=== PATIENT | female | born 1955 | race Two or more races ===

== ENCOUNTER 2023-10-30 18:41 | Inpatient (IN) | payer MEDICARE, BC ==
[~2023-10-30] VITALS: Ht 170.2 cm; Wt 84.7 kg
[~2023-10-30 18:41] MED LIST: ASPI81CH59 PO; ATOR-507 PO; EMPA1TAB3 PO; LEVO125T7 PO; LIDO5PAD12 TOP
[2023-10-30 19:38] LABS: Basophils # (auto) 0.1 10 ^3/uL (0-0.2); Basophils % (auto) 1.4 % (0.0-2.0); Eosinophils # (auto) 0.3 10 ^3/uL (0-0.8); Eosinophils % (auto) 5.6 % (0.0-7.0); Lymphocytes # (auto) 1.9 10 ^3/uL (0.4-5.4); Lymphocytes % (auto) 32.9 % (10.0-50.0); Mean Corpuscular Hemoglobin 29.7 pg (28.0-32.0); Mean Corpuscular Hgb Conc. 34.1 g/dL (32.0-36.0); Mean Corpuscular Volume 87.2 fL (80.0-100.0); Monocytes # (auto) 0.3 10 ^3/uL (0-1.3); Monocytes % (auto) 5.4 % (0.0-12.0); Neutrophils # (auto) 3.2 10 ^3/uL (1.6-8.6); Neutrophils % (auto) 54.7 % (37.0-80.0); Nucleated Red Blood Cells % 0.5 %; Platelet Count (auto) 249 10^3/uL (140-450); Red Cell Distribution Width 16.4 % (11.8-14.3); White Blood Cell 5.8 10^3/uL (4.4-10.8)
[2023-10-30 19:56] LABS: Alanine Aminotransferase 17 U/L (7-40); Albumin 4.3 g/dL (3.2-4.8); Alkaline Phosphatase 111 U/L (46-116); Anion Gap 7 (5-15); Aspartate Aminotransferase 11 U/L (13-40); Bilirubin, Total 1.6 mg/dL (0.2-1.0); Blood Urea Nitrogen 24 mg/dL (9-23); Calcium 9.8 mg/dL (8.7-10.4); Carbon Dioxide 27 mmol/L (20-30); Chloride 106 mmol/L (98-107); Glucose 135 mg/dL (74-106); Potassium 3.9 mmol/L (3.5-5.1); Sodium 140 mmol/L (136-145); Total Protein 7.3 g/dL (5.7-8.2)
[2023-10-30 21:03] LABS: INR 1.03 (0.9-1.15); Partial Thromboplastin Time 27.2 SEC (24.5-34.5); Prothrombin Time 10.9 sec (9.3-11.8)
[2023-10-30] MEDS: HYDROcodone-ACET 5/325MG TAB PO ONE (21:04)
[2023-10-30] MEDS: GABAPENTIN 300 MG CAP PO ONE (21:05)
[2023-10-30 22:42] LABS: Urine Bacteria MOD /hpf (None Seen); Urine Blood Negative /uL (Negative); Urine Clarity Clear (Clear); Urine Color Light-Yellow (Yellow); Urine Protein, UAD Negative (Negative); Urine Specific Gravity 1.017 (1.001-1.035); Urine Urobilinogen Normal (Negative); Urine WBC 22 /hpf (0 - 5); Urine pH 5.5 (5.0-9.0)
[2023-10-30] MEDS: ENOXAPARIN SOD 100 MG/1 ML SYRINGE SC ONE (23:59)
[2023-10-31] VITALS (7 sets, daily range): BP systolic 93–114; BP diastolic 54–72; PULSE 62–97; RESP 14–19; TEMP 97.5–97.9; O2SAT 91–98
[2023-10-31] MEDS ORDERED: ACETAMINOPHEN 325 MG TAB PO PRN (00:15)
[2023-10-31] MEDS ORDERED: DOCUSATE SOD 100 MG CAP PO PRN (00:15)
[2023-10-31] MEDS ORDERED: DEXTROSE (50%) 50ML SYRG IV PRN (00:30)
[2023-10-31] MEDS: cefTRIAXone 1GM/50ML D5W 50 ML IV ONE (01:03)
[2023-10-31] MEDS ORDERED: MORPHINE SULFATE INJ 2 MG/ml SYRG IV PRN (03:00)
[2023-10-31] MEDS ORDERED: NITROGLYCERIN 0.4 MG SL TAB SL PRN (03:00)
[2023-10-31] MEDS: ONDANSETRON HCL 4 MG/2 ML VIAL IV PRN (04:02)
[2023-10-31] MEDS: MORPHINE SULFATE INJ 2 MG/ml SYRG IV PRN (04:02)
[2023-10-31] MEDS: diphenhdrAMINE HCL 50 MG/1 ML VL ONE (04:24)
[2023-10-31] MEDS: diphenhdrAMINE HCL 50 MG/1 ML VL IV ONE (04:25)
[2023-10-31] MEDS ORDERED: diphenhdrAMINE HCL 50 MG/1 ML VL IV PRN (04:30)
[2023-10-31] MEDS: LEVOTHYROXINE SODIUM 50 MCG TAB PO SCH (05:52)
[2023-10-31] MEDS: GABAPENTIN 300 MG CAP PO SCH (05:52)
[2023-10-31 06:14] LABS: Basophils # (auto) 0.1 10 ^3/uL (0-0.2); Basophils % (auto) 1.5 % (0.0-2.0); Eosinophils # (auto) 0.4 10 ^3/uL (0-0.8); Eosinophils % (auto) 5.6 % (0.0-7.0); Hematocrit 41.3 % (36.0-46.0); Hemoglobin 13.9 g/dL (12.2-16.2); Lymphocytes # (auto) 2.5 10 ^3/uL (0.4-5.4); Lymphocytes % (auto) 39.5 % (10.0-50.0); Mean Corpuscular Hemoglobin 30.1 pg (28.0-32.0); Mean Corpuscular Hgb Conc. 33.8 g/dL (32.0-36.0); Mean Corpuscular Volume 89.2 fL (80.0-100.0); Monocytes # (auto) 0.5 10 ^3/uL (0-1.3); Neutrophils # (auto) 2.8 10 ^3/uL (1.6-8.6); Neutrophils % (auto) 45.4 % (37.0-80.0); Nucleated Red Blood Cells % 0.2 %; Platelet Count (auto) 212 10^3/uL (140-450); Red Blood Cells 4.63 10^6/uL (4.0-5.20); Red Cell Distribution Width 16.9 % (11.8-14.3); White Blood Cell 6.3 10^3/uL (4.4-10.8)
[2023-10-31 06:31] LABS: Alanine Aminotransferase 12 U/L (7-40); Alkaline Phosphatase 99 U/L (46-116); Anion Gap 7 (5-15); Aspartate Aminotransferase 18 U/L (13-40); BUN/Creatinine Ratio 26.3 (10.0-20.0); Blood Urea Nitrogen 20 mg/dL (9-23); Calcium 9.2 mg/dL (8.7-10.4); Carbon Dioxide 25 mmol/L (20-30); Chloride 107 mmol/L (98-107); Glucose 98 mg/dL (74-106); Sodium 139 mmol/L (136-145)
[2023-10-31 06:32] LABS: Bilirubin, Total 1.3 mg/dL (0.2-1.0)
[2023-10-31] MEDS: ACCU-CHEK COMFORT CURVE STRIP VI SCH (06:36)
[2023-10-31] MEDS: InsuLIN REG 1unit/0.01ml Soln (100units/ml) SC SCH (06:37)
[2023-10-31] MEDS: HYDROcodone-ACET 5/325MG TAB PO PRN (06:41)
[2023-10-31] MEDS: ENOXAPARIN SOD 80 MG/0.8ML SYRINGE SC SCH (10:08)
[2023-10-31] MEDS: FAMOTIDINE (10MG/ML) 2ML VL IV SCH (10:08)
[2023-10-31] MEDS: IOHEXOL 350 MG/ML 100ML IJ ONE (15:42)
[2023-10-31] MEDS ORDERED: MET50T PO (16:34)
[2023-10-31] MEDS ORDERED: ZINC220T6 PO (16:34)
[2023-10-31] MEDS ORDERED: ASCO500T16 PO (16:34)
[2023-10-31] MEDS ORDERED: ASPI325T6 PO (16:34)
[2023-10-31] MEDS ORDERED: PREG50CA80 PO (16:34)
[2023-10-31] MEDS ORDERED: ACET-1881 PO (16:34)
[2023-10-31] MEDS: ATORVASTATIN 20 MG TAB PO SCH (21:00)
[2023-11-01] VITALS (8 sets, daily range): BP systolic 101–116; BP diastolic 54–64; PULSE 63–74; RESP 17–19; TEMP 97.6–98.1; O2SAT 90–97
[2023-11-01] MEDS: cefTRIAXone 1GM/50ML D5W 50 ML IV SCH (00:27)
[2023-11-01] MEDS: KETOROLAC TROMETH 30 MG/ML 1ML VIAL IV ONE ×2 (04:01→22:35)
[2023-11-01 05:29] LABS: Basophils # (auto) 0.1 10 ^3/uL (0-0.2); Basophils % (auto) 1.5 % (0.0-2.0); Eosinophils # (auto) 0.3 10 ^3/uL (0-0.8); Eosinophils % (auto) 5.6 % (0.0-7.0); Hematocrit 38.8 % (36.0-46.0); Lymphocytes % (auto) 37.5 % (10.0-50.0); Mean Corpuscular Hemoglobin 29.5 pg (28.0-32.0); Mean Corpuscular Hgb Conc. 33.6 g/dL (32.0-36.0); Mean Corpuscular Volume 87.7 fL (80.0-100.0); Monocytes # (auto) 0.3 10 ^3/uL (0-1.3); Monocytes % (auto) 6.5 % (0.0-12.0); Neutrophils # (auto) 2.6 10 ^3/uL (1.6-8.6); Neutrophils % (auto) 48.9 % (37.0-80.0); Platelet Count (auto) 213 10^3/uL (140-450); Red Blood Cells 4.42 10^6/uL (4.0-5.20); Red Cell Distribution Width 16.6 % (11.8-14.3); White Blood Cell 5.3 10^3/uL (4.4-10.8)
[2023-11-01 06:03] LABS: Alanine Aminotransferase 13 U/L (7-40); Albumin 3.9 g/dL (3.2-4.8); Alkaline Phosphatase 94 U/L (46-116); Anion Gap 7 (5-15); Aspartate Aminotransferase 12 U/L (13-40); BUN/Creatinine Ratio 30.7 (10.0-20.0); Carbon Dioxide 27 mmol/L (20-30); Chloride 108 mmol/L (98-107); Glucose 100 mg/dL (74-106); Potassium 4.5 mmol/L (3.5-5.1); Sodium 142 mmol/L (136-145)
[2023-11-01 06:04] LABS: Bilirubin, Total 1.5 mg/dL (0.2-1.0); Total Protein 6.7 g/dL (5.7-8.2)
[2023-11-01 06:08] LABS: Blood Urea Nitrogen 31 mg/dL (9-23)
[2023-11-01 10:19] LABS: Free T3 2.48 pg/mL (2.3-4.2)
[2023-11-01 10:20] LABS: Free T4 (Free Thyroxine) 0.64 ng/dL (0.89-1.76)
[2023-11-01] MEDS: HYDROcodone-ACET 10/325MG TAB PO PRN (11:04)
[2023-11-02] VITALS (12 sets, daily range): BP systolic 99–118; BP diastolic 42–66; PULSE 60–81; RESP 12–19; TEMP 97–98.2; O2SAT 90–99
[2023-11-02 06:13] LABS: Basophils # (auto) 0 10 ^3/uL (0-0.2); Basophils % (auto) 0.7 % (0.0-2.0); Eosinophils # (auto) 0.3 10 ^3/uL (0-0.8); Eosinophils % (auto) 6.2 % (0.0-7.0); Lymphocytes # (auto) 2.1 10 ^3/uL (0.4-5.4); Lymphocytes % (auto) 39.9 % (10.0-50.0); Mean Corpuscular Hemoglobin 29.1 pg (28.0-32.0); Mean Corpuscular Hgb Conc. 33.4 g/dL (32.0-36.0); Mean Corpuscular Volume 87.2 fL (80.0-100.0); Monocytes # (auto) 0.3 10 ^3/uL (0-1.3); Monocytes % (auto) 5.1 % (0.0-12.0); Neutrophils # (auto) 2.5 10 ^3/uL (1.6-8.6); Neutrophils % (auto) 48.1 % (37.0-80.0); Nucleated Red Blood Cells % 0.1 %; Platelet Count (auto) 204 10^3/uL (140-450); Red Blood Cells 4.47 10^6/uL (4.0-5.20); Red Cell Distribution Width 16.9 % (11.8-14.3); White Blood Cell 5.2 10^3/uL (4.4-10.8)
[2023-11-02 06:38] LABS: Alanine Aminotransferase 21 U/L (7-40); Albumin 3.7 g/dL (3.2-4.8); Alkaline Phosphatase 98 U/L (46-116); Anion Gap 7 (5-15); Aspartate Aminotransferase 19 U/L (13-40); Blood Urea Nitrogen 40 mg/dL (9-23); Calcium 9.1 mg/dL (8.7-10.4); Carbon Dioxide 27 mmol/L (20-30); Chloride 107 mmol/L (98-107); Glucose 94 mg/dL (74-106); Magnesium 2.4 mg/dL (1.6-2.6); Potassium 4.2 mmol/L (3.5-5.1); Sodium 141 mmol/L (136-145)
[2023-11-02 06:39] LABS: Bilirubin, Total 1.6 mg/dL (0.2-1.0); Total Protein 6.5 g/dL (5.7-8.2)
[2023-11-02] MEDS: ASPirin 81 mg TAB PO SCH (09:49)
[2023-11-02] MEDS: HEPARIN IN NS 1000Units/500mL 1,500 ML ONE (10:47)
[2023-11-02] MEDS: IODIXANOL 320MG/ML 100ML BTL IV ONE (10:47)
[2023-11-02] MEDS: fentaNYL CITRATE 100 MCG/2 ML VL ONE ×2 (11:01→11:44)
[2023-11-02] MEDS: HEPARIN SODIUM (PORCINE) 5000 UNITS/ML 1ML VIAL ONE (11:01)
[2023-11-02] MEDS: LIDOCAINE 2%HCL (LOCAL ANESTH.) INJ 20ML MDV ONE (11:02)
[2023-11-02] MEDS: MIDAZOLAM HCL 2MG/2ML 2ml VIAL (1mg/ml) ONE ×2 (11:02→11:45)
[2023-11-02] MEDS ORDERED: MORPHINE SULFATE INJ 2 MG/ml SYRG IV PRN (17:30)
[2023-11-02] MEDS: TICAGRELOR 90 MG TAB PO SCH (20:57)
[2023-11-02] MEDS: APIXABAN 5 MG TAB PO SCH (20:57)
[2023-11-03 05:00] VITALS: BP 109/66; PULSE 65; RESP 18; TEMP 97.2; O2SAT 94
[2023-11-03 08:00] VITALS: PULSE 60
[2023-11-03 09:00] VITALS: BP 105/56; PULSE 65; RESP 18; TEMP 98.2; O2SAT 95
[2023-11-03] MEDS: CEPHALEXIN 250 MG CAP PO SCH (12:58)
[2023-11-03 13:00] VITALS: BP_DIAS 122; PULSE 72; RESP 18; TEMP 97.7; O2SAT 100
[2023-11-03] MEDS ORDERED: LORazepam 2MG/ML-1ML VIAL IV PRN (14:30)
[2023-11-03] MEDS: SOD CHL 0.45% 1,000 ML IV SCH (14:30)
[2023-11-03] MEDS: IOHEXOL 350 MG/ML 100ML IJ ONE (14:40)
[2023-11-03] MEDS: PANTOPRAZOLE 40 MG/10 ML VIAL INJ IV ONE (17:47)
[2023-11-03 20:00] VITALS: PULSE 65
[2023-11-03 21:00] VITALS: BP 122/73; PULSE 65; RESP 17; TEMP 98.6; O2SAT 98
[2023-11-03] MEDS: ENOXAPARIN SOD 80 MG/0.8ML SYRINGE SC SCH (21:54)
[2023-11-04 01:00] VITALS: BP 105/59; PULSE 75; RESP 18; TEMP 98.3; O2SAT 94
[2023-11-04 05:00] VITALS: BP_SYST 106; BP_SYST 112; BP_DIAS 49; BP_DIAS 58; PULSE 69; PULSE 75; RESP 17; RESP 18; TEMP 98.5; O2SAT 92; O2SAT 99
[2023-11-04 06:01] LABS: Anion Gap 10 (5-15); Calcium 9.2 mg/dL (8.7-10.4); Carbon Dioxide 26 mmol/L (20-30); Chloride 106 mmol/L (98-107); Potassium 3.7 mmol/L (3.5-5.1); Sodium 142 mmol/L (136-145)
[2023-11-04 06:07] LABS: BUN/Creatinine Ratio 36.6 (10.0-20.0); Blood Urea Nitrogen 26 mg/dL (9-23); Glucose 101 mg/dL (74-106); Magnesium 2.2 mg/dL (1.6-2.6)
[2023-11-04 08:00] VITALS: PULSE 61; PULSE 63; RESP 18
[2023-11-04 08:15] VITALS: BP 95/54; PULSE 63; RESP 17; TEMP 97.7; O2SAT 93
[2023-11-04] MEDS ORDERED: HYDR1TAB97 PO (11:40)
[2023-11-04] MEDS ORDERED: TICA90TA PO (11:40)
[2023-11-04] MEDS ORDERED: APIX5TAB PO (11:40)
[2023-11-04] MEDS ORDERED: GABA300T4 PO (11:56)
[2023-11-04 12:15] VITALS: BP 100/59; PULSE 64; RESP 16; TEMP 98; O2SAT 96
[2023-11-04 15:05] VITALS: TEMP 36.7
== END 2023-11-04 16:15 | disposition home or self-care (01) | DRG 300 ==
LOC: ER 18:41 → TELE 10-31 02:50 → TELE-WESTW 10-31 15:50
PROVIDERS: ADMIT Internal Medicine; ATTEND Internal Medicine
PROC: B51CYZZ Fluoroscopy of Left Lower Extremity Veins using Other Contrast (ICD-10-PCS; principal; 2023-11-02)
PROC: B51GYZZ Fluoroscopy of Left Pelvic (Iliac) Veins using Other Contrast (ICD-10-PCS; 2023-11-02)
PROC: B54CZZA Ultrasonography of Left Lower Extremity Veins, Guidance (ICD-10-PCS; 2023-11-02)
DX: I82.412 Acute embolism and thrombosis of left femoral vein (principal); N39.0 Urinary tract infection, site not specified; I82.432 Acute embolism and thrombosis of left popliteal vein; K57.30 Diverticulosis of large intestine without perforation or abscess without bleeding; E03.9 Hypothyroidism, unspecified; E66.9 Obesity, unspecified; I25.10 Atherosclerotic heart disease of native coronary artery without angina pectoris; I50.9 Heart failure, unspecified; E11.9 Type 2 diabetes mellitus without complications; X58.XXXA Exposure to other specified factors, initial encounter; F41.9 Anxiety disorder, unspecified; Z95.1 Presence of aortocoronary bypass graft; Y93.89 Activity, other specified; Y92.89 Other specified places as the place of occurrence of the external cause; Y99.8 Other external cause status; Z83.3 Family history of diabetes mellitus; Z80.8 Family history of malignant neoplasm of other organs or systems; Z88.5 Allergy status to narcotic agent; I25.2 Old myocardial infarction; Z68.27 Body mass index [BMI] 27.0-27.9, adult
CPT/HCPCS: 36012; 36415; 71045; 71275; 72131; 72192; 80048; 80053; 81001; 82962; 83036; 83735; 84439; 84443; 84481; 85025; 85610; 85730; 87086; 93306; 93970; 96365; 96372; 96375; 99152; C1894; G0378; J1885; J2250; J2405; J2470; J3490; Q9967

== ENCOUNTER 2025-02-09 23:13 | Emergency (ER) | payer MEDICARE, BC ==
[~2025-02-09] VITALS: Ht 170.2 cm; Wt 91.0 kg
[2025-02-09 23:13] VITALS: BP 124/60; RESP 16; TEMP 97.6; O2SAT 96
[~2025-02-09 23:13] MED LIST changes: +ACET-1881 PO; +APIX5TAB PO; +ASCO500T16 PO; +GABA300T4 PO; +HYDR1TAB97 PO; +MET50T PO; +PREG50CA80 PO; +TICA90TA PO; +ZINC220T6 PO
[2025-02-09 23:24] VITALS: PULSE 68
--- NOTE | 2025-02-09 23:32 | ED.PDOC ---
HPI Comments HPI: Poor Historian. 69-year-old female brought in by ambulance from home after daughter called 911 for chest pain. Chest pain started on the right side of her chest then moved to the left side with the associated left upper extremity numbness and tingling. Patient states she has been sick in the last few days with a cough nonspecific. Patient's seek nitroglycerin sublingual prior to arrival was given a little bit of dizziness and dropped her blood pressure down to systolic of 100. Patient was given full-dose aspirin prior to arrival. She currently denies any active chest pain. Patient is noncompliant with any of her medications however she only takes Eliquis and guardian and Tylenol. She has an extensive heart and cardiac history. Past Medical History: DVT, MIs, diabetes, Past Surgical History: Cardiac stents, cholecystectomy, CABG. REVIEW OF SYSTEMS: CONSTITUTIONAL: Denies acute: fever, diaphoresis, chills, generalized weakness. HEAD: Denies acute: headache, photophobia Eyes: Denies acute: Double vision, vision loss, eye pain, eye discharge. EARS: Denies acute: tinnitus, hearing loss, ear discharge, ear pain, THROAT: Denies acute: sore throat, swelling, difficulty swallowing , pain with swallowing, change in voice. NECK: Denies acute: neck pain, neck swelling, stiff neck. HEART: Denies acute : , palpitations, LUNGS: Denies acute: SOB, wheezing, hemoptysis ABDOMEN: Denies acute: abdominal pain, Nausea, Vomiting, diarrhea, melena , hematemesis, hematochezia SKIN: Denies acute: rash, redness, lesions, itchiness. EXTREMITIES: Denies acute: calf pain, weakness, denies pain in extremity. Denies acute: Low back pain. Neuro: Denies acute: focal neurological deficit, motor or sensory focal neurological deficit, tremors, seizure like activity, confusion, dizziness, change in mental status, loss of bowel or bladder function, cauda equina like symptoms. : Denies acute: dysuria, hematuria, flank pain, increase in urinary frequency. PSYCH: Denies acute: hallucination, suicidal ideation, homicidal ideation. PHYSICAL EXAM: General: ---mild-----acute distress, awake and alert. Head: normocephalic, atraumatic. No raccoon's eyes, no marshall sign. Neck: supple, trachea is midline, no swelling. Throat: Normal phonation. Eyes:, no erythema, no purulent discharge, no proptosis, no icterus. Heart: regular rate, regular rhythm, no significant murmur appreciated. Lungs: no apparent respiratory distress, Able to speak in full sentences. No wheezing, no rhonchi, no crackles. No stridors Clear to auscultation bilaterally. Abdomen: non tender to palpation, non distended, soft, no guarding, no rebound, + bowel sounds. Obese Neuro: Awake, Alert, oriented to name, self, situation, follows commands GCS=15. Speech is normal. Skin: no petechia, no purpura, no cyanosis, non-pale, not jaundice. Lower extremities: --no - Pitting edema no deformity, no focal swelling, no calf TTP. Makes eye contact. moves all four extremities. Face: no apparent facial droop. ED COURSE: DISCLAIMER: This medical document was created using an electronic medical record system with voice recognition software and computerized dictation system. Although this document has been carefully reviewed, there might still be some phonetic and typographical errors. Occasional wrong-word or "sound-alike" substitutions may have occurred due to the inherent limitations of voice recognition software. These areas are purely typographical due to imperfections of the software programs and do not reflect any compromise in the patient's medical care. Please read the chart carefully and recognize, using context, where these substitutions have occurred. Chief Complaint: Chest Pain Time Seen by MD: 23:20 Reviewed Notes: Allergies Allergies: Coded Allergies: Morphine (Verified Allergy, Mild, ITCHING , 10/31/23) Home Meds Active Scripts Gabapentin (Once-Daily) (Gabapentin) 300 Mg Tab, 300 MG PO TID for 30 Days, #90 TAB 1 Refill Prov:MALI HELLER MD 11/04/23 Hydrocodone-Acetaminophen (Hydrocodone/Acetaminophen 5-325 mg) 1 Tab Tab, 1 TAB PO TIDP PRN for 7 Days, #21 TAB Prov:MALI HELLER MD 11/04/23 Apixaban Base (ELIQUIS) 5 Mg Tab, 5 MG PO BID for 30 Days, #60 TAB 2 Refills Prov:MALI HELLER MD 11/04/23 Ticagrelor Base (BRILINTA) 90 Mg Tab, 90 MG PO BID for 30 Days, #60 TAB 2 Refills Prov:MALI HELLER MD 11/04/23 Reported Medications Pregabalin (Pregabalin) 50 Mg Cap, 50 MG PO TID for 30 Days, #90 CAP 1 Refill 11/04/23 Aspirin (Aspirin Low Dose) 81 Mg Chw, 1 TAB PO DAILY for 30 Days, #60 3 Refills 11/01/23 Lidocaine (Lidocaine Patch 5%) 5 % Pad, 1 PATCH TOP DAILY for 30 Days, #30 11/01/23 Empagliflozin (Jardiance) 25 Mg Tab, 1 TAB PO DAILY for 90 Days, #90 11/01/23 Levothyroxine Sodium (Levothyroxine Sodium) 125 Mcg Tab, 1 TAB PO DAILY for 90 Days, #90 11/01/23 Atorvastatin Calcium (Lipitor) 40 Mg Tab, 1 TAB PO HS for 90 Days, #90 1 Refill 11/01/23 Zinc Sulfate (Zinc Sulfate) 220 Mg Tab, 220 MG PO DAILY, TAB 10/31/23 Pregabalin (Pregabalin) 50 Mg Cap, 50 MG PO TID, CAP 10/31/23 Metoprolol Tartrate (LOPRESSOR TABLET) 50 Mg Tb, 25 MG PO DAILY, TAB 10/31/23 Ascorbic Acid (Ascorbic Acid) 500 Mg Tab, 500 MG PO BID for 30 Days, MG 10/31/23 Acetaminophen (Acetaminophen) 325 Mg Tab, 325 MG PO Q4HP PRN for MILD PAIN for 30 Days, MG 0 Refills 10/31/23 Information Source: Patient, Emergency Med Personnel Past Medical History PAST MEDICAL HISTORY: CAD, High Lipids Surgical History: CABG, PTCA 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 Was a procedure done?: No CP Differential Dx Differential Diagnosis: N/A Differential Diagnosis: Other (Ddx include but not limitied to gastritis, musculoskeletal pain, radiculopathy, atypical chest pain, dissection, aneurysm, ACS, unstable angina, hiatal hernia, GERD, anxiety, costochondritis, PE, pneumothroax, neoplasm, cardiac ischemia, drug abuse, anemia.) X-Ray, Labs, Meds, VS Vital Signs Date Time Temp Pulse Resp B/P (MAP) Pulse Ox O2 Delivery O2 Flow Rate FiO2 02/09/25 23:13 97.6 70 16 124/60 96 97.6 Lab Test 02/09/25 23:35 Range/Units White Blood Count 5.6 4.4-10.8 10^3/uL Red Blood Count 4.92 4.0-5.20 10^6/uL Hemoglobin 14.0 12.2-16.2 g/dL Hematocrit 41.8 36.0-46.0 % Mean Corpuscular Volume 84.9 80.0-100.0 fL Mean Corpuscular Hemoglobin 28.5 28.0-32.0 pg Mean Corpuscular Hemoglobin Concent 33.5 32.0-36.0 g/dL Red Cell Distribution Width 17.2 H 11.8-14.3 % Platelet Count 236 140-450 10^3/uL Mean Platelet Volume 8.3 6.9-10.8 fL Neutrophils (%) (Auto) 60.0 37.0-80.0 % Lymphocytes (%) (Auto) 29.2 10.0-50.0 % Monocytes (%) (Auto) 6.4 0.0-12.0 % Eosinophils (%) (Auto) 3.1 0.0-7.0 % Basophils (%) (Auto) 1.3 0.0-2.0 % Neutrophils # (Auto) 3.4 1.6-8.6 10 ^3/uL Lymphocytes # (Auto) 1.6 0.4-5.4 10 ^3/uL Monocytes # (Auto) 0.4 0-1.3 10 ^3/uL Eosinophils # (Auto) 0.2 0-0.8 10 ^3/uL Basophils # (Auto) 0.1 0-0.2 10 ^3/uL Nucleated Red Blood Cells 0.3 % Sodium Level 138 136-145 mmol/L Potassium Level 3.9 3.5-5.1 mmol/L Chloride Level 104 98-107 mmol/L Carbon Dioxide Level 24 20-31 mmol/L Anion Gap 10 5-15 Blood Urea Nitrogen 21 9-23 mg/dL Creatinine 0.95 0.550-1.02 mg/dL Glomerular Filtration Rate Calc 65 >90 mL/min BUN/Creatinine Ratio 22.1 H 10.0-20.0 Serum Glucose 360 H 74-106 mg/dL Lactic Acid Level 1.2 0.4-2.0 mmol/L Calcium Level 8.5 L 8.7-10.4 mg/dL Total Bilirubin 0.8 0.2-1.0 mg/dL Aspartate Amino Transferase (AST) 26 13-40 U/L Alanine Aminotransferase (ALT) 29 7-40 U/L Alkaline Phosphatase 104 46-116 U/L Troponin I High Sensitivity 4 </=34 ng/L B-Type Natriuretic Peptide 18.07 0-100 pg/mL Total Protein 6.8 5.7-8.2 g/dL Albumin 4.1 3.2-4.8 g/dL Thyroid Stimulating Hormone (TSH) Pending Time of 1ST Reevaluation: 00:00 Reevaluation 1ST: Improved Patient Education/Counseling: Diagnosis, Treatment Family Education/Counseling: No Family Present Comments MDM: patient presented with the above HPI.-cardiac-----workup was initiated. patient was found with the above mentioned diagnosis. the following medications were ordered: please refer to order lists of meds and tests obtained by myself Dr. Sousa. Patient ED course and VS have been stabilized. Patient has been reassessed in the ED and remained in a stable condition. Patient has been observed in the ED adequate length of time to insure improvement/stability. Escalation of care considered: Consideration of escalation to observation or admission Patient was ADMITTED to the medicine team for further evaluation and treatment of their presentation. However I was informed that the patient wants to leave against medical advice. she refused some of her labs and imaging studies. All the reports of any imaging studies that were ordered by myself were reviewed by myself. Departure 1 Departure Time of Disposition: 23:33 Impression: Primary Impression: Chest pain Additional Impression: Left against medical advice Disposition: LEFT AGAINST MEDICAL ADVICE Condition: Guarded Additional Instructions: Left against medical advice Discharged With: Self Critical Care Note Critical Care Time?: No Heart Score Heart Score: Heart Score Response (Comments) Value History Moderate Suspicious 1 EKG Normal 0 Age >65 2 Risk Factors >3 or Hx ASHD 2 Troponin Normal limit 0 Total 5 SHELBI SOUSA DO Feb 09, 2025 23:32
[2025-02-09 23:49] LABS: Hematocrit 41.8 % (36.0-46.0); Hemoglobin 14.0 g/dL (12.2-16.2); Mean Corpuscular Hemoglobin 28.5 pg (28.0-32.0); Mean Corpuscular Volume 84.9 fL (80.0-100.0); Nucleated Red Blood Cells % 0.3 %
[2025-02-10 00:07] LABS: Alanine Aminotransferase 29 U/L (7-40); Albumin 4.1 g/dL (3.2-4.8); Alkaline Phosphatase 104 U/L (46-116); Anion Gap 10 (5-15); BUN/Creatinine Ratio 22.1 (10.0-20.0); Bilirubin, Total 0.8 mg/dL (0.2-1.0); Blood Urea Nitrogen 21 mg/dL (9-23); Calcium 8.5 mg/dL (8.7-10.4); Carbon Dioxide 24 mmol/L (20-31); Chloride 104 mmol/L (98-107); Glucose 360 mg/dL (74-106); Potassium 3.9 mmol/L (3.5-5.1); Sodium 138 mmol/L (136-145); Total Protein 6.8 g/dL (5.7-8.2)
[2025-02-10] MEDS ORDERED: ONDANSETRON HCL 4 MG/2 ML VIAL IV PRN (00:30)
[2025-02-10] MEDS ORDERED: DEXTROSE (50%) 50ML SYRG IV PRN (00:30)
[2025-02-10] MEDS ORDERED: HYDROcodone-ACET 5/325MG TAB PO PRN (00:30)
[2025-02-10] MEDS ORDERED: DOCUSATE SOD 100 MG CAP PO PRN (00:30)
[2025-02-10] MEDS ORDERED: ACETAMINOPHEN 325 MG TAB PO PRN (00:30)
[2025-02-10] MEDS ORDERED: SODIUM CHLORIDE 0.9% 1,000 ML IV SCH (00:30)
[2025-02-10] MEDS ORDERED: InsuLIN REG 1unit/0.01ml Soln (100units/ml) SC SCH (04:00)
[2025-02-10] MEDS ORDERED: ACCU-CHEK COMFORT CURVE STRIP VI SCH (04:00)
[2025-02-10] MEDS ORDERED: LEVOTHYROXINE SODIUM 50 MCG TAB PO SCH (06:00)
[2025-02-10] MEDS ORDERED: APIXABAN 5 MG TAB PO SCH (10:00)
[2025-02-10] MEDS ORDERED: METOPROLOL TARTRATE 25 MG TAB PO SCH (10:00)
[2025-02-10] MEDS ORDERED: ATORVASTATIN 20 MG TAB PO SCH (22:00)
--- NOTE | 2025-02-12 06:54 | ECG ---
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
== END 2025-02-10 00:52 | disposition left against medical advice (07) ==
LOC: ER 23:13 → EDBD 23:13 → ER 02-10 00:52
DX: R07.89 Other chest pain (principal); E78.5 Hyperlipidemia, unspecified; I25.10 Atherosclerotic heart disease of native coronary artery without angina pectoris; E11.9 Type 2 diabetes mellitus without complications; Z79.899 Other long term (current) drug therapy; Z90.49 Acquired absence of other specified parts of digestive tract; Z86.718 Personal history of other venous thrombosis and embolism; Z79.84 Long term (current) use of oral hypoglycemic drugs; Z79.01 Long term (current) use of anticoagulants; Z79.82 Long term (current) use of aspirin; Z79.890 Hormone replacement therapy; Z88.5 Allergy status to narcotic agent; Z95.1 Presence of aortocoronary bypass graft; Z95.5 Presence of coronary angioplasty implant and graft
CPT/HCPCS: 36415; 80053; 83605; 83880; 84443; 84484; 85025; 93005